=== PATIENT | male | born 1985 | race Two or more races ===

== ENCOUNTER → 2016-03-23 | Outpatient (REF) | payer OTHER ==
[2016-03-23 13:54] LABS: ALKALINE PHOSPHATASE 82 U/L (45-117); ALT/SGPT 46 U/L (12-78); ANION GAP 7 MEQ/L (8-16); AST/SGOT 21 U/L (15-37); BILIRUBIN,TOTAL 0.5 MG/DL (0.2-1.0); BLOOD UREA NITROGEN 13 MG/DL (7-18); CALCIUM LEVEL 9.3 MG/DL (8.5-10.1); CARBON DIOXIDE LEVEL 28 MEQ/L (21-32); CHLORIDE LEVEL 104 MEQ/L (98-107); CREATININE FOR GFR 1.13 MG/DL (0.70-1.30); GLOMERULAR FILTRATION RATE > 60.0 (>60); GLUCOSE, FASTING 83 MG/DL (70-105); POTASSIUM SERUM 4.2 MEQ/L (3.5-5.1); SODIUM LEVEL 139 MEQ/L (136-145)
[2016-03-23 16:16] LABS: ERYTHROCYTE SEDIMENTATION RATE 1 mm/hr (0-15)
[2016-03-23 18:21] LABS: ADD MORPHOLOGY? YES; BASO # 0.1 K/mm3 (0.0-0.2); BASO % 1.5 % (0.0-1.0); EOS # 0.3 K/mm3 (0.0-0.50); LARGE UNSTAINED CELL # 0.2 K/mm3 (0.0-0.4); LYMPH # 3.2 K/mm3 (1.5-4.5); LYMPH % 36.5 % (24.0-44.0); MEAN CORPUSCULAR HEMOGLOBIN 20.7 pg (27.0-33.0); MEAN CORPUSCULAR HGB CONC 31.8 g/dl (32.0-36.5); MEAN CORPUSCULAR VOLUME 65.1 fl (80.0-96.0); MONO # 0.5 K/mm3 (0.0-0.8); MONO % 5.7 % (0.0-5.0); NEUTROPHILS # 4.2 K/mm3 (1.8-7.7); NEUTROPHILS % 50.3 % (36.0-66.0); PLATELET COUNT, AUTOMATED 271 k/mm3 (150-450); RED CELL DISTRIBUTION WIDTH 15.7 % (11.5-14.5); WHITE BLOOD COUNT 8.4 K/mm3 (4.0-10.0)
[2016-03-23 21:35] LABS: MICROCYTOSIS 3+; OVALOCYTES 1+; POIKILOCYTOSIS 1+; SPHEROCYTES 1+
[2016-03-23 21:36] LABS: ANISOCYTOSIS 1+
== END ==
LOC: M LABNEURO 12:58
PROVIDERS: ATTEND Psychiatry & Neurology Neurology
DX: R51 Headache (principal)

== ENCOUNTER → 2016-04-10 | Outpatient (REF) ==
--- NOTE | 2016-04-10 13:22 | REP ---
Clinical: Chest pain . Comparison: None . Technique: PA and lateral. Findings: The mediastinum and cardiac silhouette are normal. The lung menash are clear and without acute consolidation, effusion, or pneumothorax. The skeletal structures are intact and normal. Impression: 1. No acute cardiopulmonary process. Signed by Alejandro Celaya MD 04/10/2016 01:13 P
--- NOTE | 2016-04-10 13:44 | REP ---
LUMBAR SPINE, FIVE VIEWS: HISTORY: Degenerative disc disease. There is no acute fracture or subluxation. The L4-5 intervertebral disc is decreased in height consistent with disc degeneration. The facet joints are normal in appearance. IMPRESSION: Degenerative change as described above. Signed by Louis Stallings MD 04/10/2016 01:49 P
== END ==
LOC: M SMT 12:30
PROVIDERS: ATTEND Internal Medicine
DX: Z02.1 Encounter for pre-employment examination (principal)

== ENCOUNTER 2016-06-22 16:47 | Inpatient (IN) | payer OTHER ==
[~2016-06-22] VITALS: Ht 172.7 cm; Wt 76.0 kg
[2016-06-22] MEDS ORDERED: PRAZ2CAP PO (17:07)
[2016-06-22] MEDS ORDERED: LEXA1TAB2 PO (17:07)
[2016-06-22 19:16] LABS: MEAN CORPUSCULAR HEMOGLOBIN 21.6 pg (27.0-33.0); MEAN CORPUSCULAR HGB CONC 31.9 g/dl (32.0-36.5); MEAN CORPUSCULAR VOLUME 67.7 fl (80.0-96.0); RED CELL DISTRIBUTION WIDTH 14.6 % (11.5-14.5)
[2016-06-22] MEDS ORDERED: ACET650T2 PO (19:18)
[2016-06-22 19:37] LABS: METHADONE URINE NEGATIVE (NEGATIVE)
[2016-06-22 19:47] LABS: ALBUMIN 3.6 GM/DL (3.2-5.2); ALBUMIN/GLOBULIN RATIO 0.95 (1.00-1.93); ALKALINE PHOSPHATASE 94 U/L (45-117); ALT/SGPT 85 U/L (12-78); ANION GAP 8 MEQ/L (8-16); AST/SGOT 29 U/L (15-37); BILIRUBIN,DIRECT < 0.1 MG/DL (0.0-0.2); BILIRUBIN,TOTAL 0.3 MG/DL (0.2-1.0); BLOOD UREA NITROGEN 15 MG/DL (7-18); CALCIUM LEVEL 8.2 MG/DL (8.5-10.1); CARBON DIOXIDE LEVEL 27 MEQ/L (21-32); CHLORIDE LEVEL 104 MEQ/L (98-107); CREATININE FOR GFR 1.26 MG/DL (0.70-1.30); GLOMERULAR FILTRATION RATE > 60.0 (>60); GLUCOSE, FASTING 109 MG/DL (70-105); POTASSIUM SERUM 4.3 MEQ/L (3.5-5.1); SODIUM LEVEL 139 MEQ/L (136-145); TOTAL PROTEIN 7.4 GM/DL (6.4-8.2)
[2016-06-22] MEDS: PRAZOSIN 1 MG CAP PO SCH (21:00)
[2016-06-22 22:37] VITALS: BP 125/81
[2016-06-22] MEDS ORDERED: ACETAMINOPHEN TAB 650MG DOSE (2X325MG) PO PRN (23:30)
[2016-06-22] MEDS ORDERED: MAALOX 30 ML SUSP *UDC PO PRN (23:30)
[2016-06-22] MEDS ORDERED: MOM 30ML SUSPENSION UDC PO PRN (23:30)
[2016-06-23 06:03] VITALS: BP 133/65
[2016-06-23] MEDS ORDERED: ESCITALOPRAM OXALATE 10 MG TAB (LEXAPRO) PO SCH ×2 (09:00)
[2016-06-23] MEDS ORDERED: hydrOXYzine 25 MG TAB PO SCH (09:00)
[2016-06-23] MEDS ORDERED: SERTRALINE HCL 50 MG TAB PO SCH (09:00)
[2016-06-23] MEDS ORDERED: SERTRALINE HCL 25 MG TABLET PO SCH (09:40)
[2016-06-23] MEDS ORDERED: OLANZapine ORAL DISINTEGRATING TAB 5MG PO PRN (10:45)
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
[2016-06-23 18:00] VITALS: BP 118/67
[2016-06-23 19:20] LABS: TOTAL IRON BINDING CAPACITY 341 UG/DL (250-450)
[2016-06-23] MEDS: PRAZOSIN 1 MG CAP PO SCH (22:39)
[2016-06-24 06:10] VITALS: BP 117/69
[2016-06-24 07:57] LABS: FERRITIN 139 NG/ML (26-388)
[2016-06-24] MEDS ORDERED: SERTRALINE HCL 50 MG TAB PO SCH (09:00)
[2016-06-24] MEDS: ESCITALOPRAM OXALATE 10 MG TAB (LEXAPRO) PO SCH (16:22)
[2016-06-24 18:00] VITALS: BP 118/68
--- NOTE | 2016-06-24 18:37 | IPN ---
DATE: 06/24/2016 INTERVAL HISTORY: MEDICATION SIDE EFFECTS: The patient states that the Zoloft last night gave him excessive restlessness and mild akathisia. He describes that he wished to be replaced on the Lexapro. He has not tried the olanzapine. BEHAVIOR: The patient has been generally reclusive to his room and guarded, although friendly on approach by nursing report. GROUP ATTENDANCE: The patient has not been attending groups fairly frequently and reports that he is really tired. PSYCHIATRIC: This patient states his anxiety and depression have improved. He describes that he has not had any panic attacks while being here, although experiencing some intrusive thoughts. He states these are improving and that he feels as though he has better control over them. 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 Otherwise he describes he has no issues currently and has been able to sleep fairly well on the saezn. He states that his appetite has not changed and remains generally good. VITAL SIGNS: Temperature 96.8, pulse 104, respiratory rate 16, blood pressure 117/69. 98% on room air. CURRENT MEDICATIONS: - Sertraline 25 mg daily - prazosin 2 mg daily - olanzapine 5 mg every 4 hours as needed as needed (p.r.n.) anxiety and agitation. - Tylenol - milk of magnesia - Mylanta as needed ALLERGIES: TRAZODONE. MENTAL STATUS EXAM: The patient met with today in the room with the attending and the resident. He appears to be well-dressed and well-groomed. His eye contact is fair, although at times he diverts his gaze from the interviewers. His mood is "okay". His affect is mildly dysthymic with some slight constriction, although reactivity can be provoked. His thought processes coherent and linear. His thought content lacks any suicidal or homicidal ideation. He denies any auditory or visual hallucinations. He does not appear to be responding to internal stimuli. He appears to have intact associations with no loosening. He does not appear to demonstrate any psychomotor agitation or retardation. He appears alert and oriented to his surroundings. Able to relate information cogently. His insight and judgment would be described as fair. ASSESSMENT: The patient is a 30-year-old man who was recently admitted to the saenz with suicidal ideation and recent history of post-traumatic stress disorder (PTSD). Has presented to [facility] and has been acutely stabilized, although his symptoms are still problematic, he is willing to try the olanzapine tonight to see if this might be an effective as needed for when he is discharged. He has no acute safety issues that we could identify and thus we cannot refuse his request to be discharged. DIAGNOSES: PTSD, acute. PLAN: Medications: Will switch the patient to Lexapro 10 mg with script when he leaves as he wishes to do this. Olanzapine will continue and the patient will try a dose to see if it is useful for him for discharge. PSYCHOTHERAPY: Encouraged group attendance. SOCIAL: Discharge plan for tomorrow with chain of command meeting. MISCELLANEOUS: None. DISPOSITION: The patient will need to remain longer for acute disposition planning and further medication titration. Time spent: 35 minutes. My preceptor for this patient encounter was Dr. Estefany Xiong. The preceptor was physically present in the building during the encounter and was fully available. As needed, all aspects of the patient interview, examination, medical decision making process, and medical care plan development were reviewed and approved by the preceptor. The preceptor is aware and concurs with the plan as stated in the body of this note and will attest to such by his/her cosignature. CM
[2016-06-24 21:50] VITALS: BP 131/89
[2016-06-24] MEDS: PRAZOSIN 1 MG CAP PO SCH (21:50)
[2016-06-25 06:39] VITALS: BP 126/76
[2016-06-25 07:31] LABS: ALBUMIN 3.7 GM/DL (3.2-5.2); ALBUMIN/GLOBULIN RATIO 0.93 (1.00-1.93); ALKALINE PHOSPHATASE 78 U/L (45-117); ALT/SGPT 73 U/L (12-78); AST/SGOT 25 U/L (15-37); BILIRUBIN,DIRECT < 0.1 MG/DL (0.0-0.2); BILIRUBIN,TOTAL 0.6 MG/DL (0.2-1.0); TOTAL PROTEIN 7.7 GM/DL (6.4-8.2)
--- NOTE | 2016-06-25 07:58 | HPE ---
DATE OF ADMISSION: 06/22/2016 Please refer to psychiatric history and evaluation for further details on this admission. This examination and history is intended for medical issues which may need treatment, followup or consult on this 30-year-old male. PRIMARY CARE PROVIDER: Pola Melendez. ALLERGIES: TRAZODONE. 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 Smokes none. Recreational drug use none. PAST MEDICAL HISTORY: Depression. Posttraumatic stress disorder. PAST SURGICAL HISTORY: Removal of submandibular gland for a stone. HOME MEDICATIONS: - Lexapro 20 mg by mouth daily - prazosin 2 mg by mouth daily at bedtime - Tylenol 650 by mouth every 6 hours as needed FAMILY HISTORY: Noncontributory. LABORATORY STUDIES: White count 8.0, hemoglobin 15, hematocrit 46.9. MCV 67.7. MCH 21.6. MCHC 31.9. RDW 14.6. Platelets are 233. Electrolytes are normal. BUN 15, creatinine 1.26. Nonfasting glucose 109, calcium 8.2. ALT elevated at 85. Toxicology screen was negative. Ten systems review was done and was unremarkable. Patient had no complaints. OBJECTIVE: Physical exam: 30-year-old cooperative male in no acute distress. Height 68 inches, weight 76 kg, BMI 25.5, blood pressure 118/68, pulse 73, respirations 16. Temperature 98.4. The patient is alert and oriented times three. Pupils equal and reactive to light. Extraocular movements intact. Cornea and sclera clear. Conjunctiva normal. No facial asymmetry. Pharynx, tongue and gums pink and moist. Tongue is midline. Neck is supple, without lymphadenopathy. No thyromegaly. No goiter. Carotids 2+ without bruit. Chest clear to auscultation, without wheeze or retraction. Heart is regular. Abdomen benign. Bowel sounds positive. Genitourinary ()/Rectal: Not done. Extremities full range of motion. No cyanosis, clubbing or edema. Gait is stready. Peripheral pulses equal and palpable bilaterally. Skin is warm and dry. IMPRESSION/PLAN: Psychiatric plan per psychiatry. Low MCV. Will check for iron levels, vitamin B12 and folate. Elevated ALT, will get a liver panel. No other acute medical issues.
[2016-06-25] MEDS: ESCITALOPRAM OXALATE 10 MG TAB (LEXAPRO) PO SCH (09:55)
[2016-06-25 10:24] LABS: FOLATE 11.1 NG/ML; VITAMIN B12 LEVEL 422 PG/ML
[2016-06-25] MEDS ORDERED: OLAN5ZYD PO (12:29)
[2016-06-25] MEDS ORDERED: ESCI10TA2 PO (12:29)
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
== END 2016-06-25 15:00 | disposition home or self-care (01) | DRG 882 ==
LOC: M ED 17:37 → M ED INP 18:32 → M PSY 22:25
PROVIDERS: ADMIT Psychiatry & Neurology Child & Adolescent Psychiatry; ATTEND Psychiatry & Neurology Psychiatry
DX: F43.10 Post-traumatic stress disorder, unspecified (principal); Z79.899 Other long term (current) drug therapy

== ENCOUNTER → 2018-05-13 | Outpatient (CLI) | payer MEDICAID, SELFPAY ==
[~2018-05-13] MED LIST: ACET650T3 PO; ESCI10TA2 PO; LEXA1TAB2 PO; OLAN5ZYD PO; PRAZ2CAP PO
== END ==
LOC: M LAB 14:39
DX: R76.11 Nonspecific reaction to tuberculin skin test without active tuberculosis (principal)

== ENCOUNTER 2018-09-24 05:58 | Emergency (ER) | payer MEDICAID, OTHER ==
[~2018-09-24] VITALS: Ht 167.6 cm; Wt 79.6 kg
[2018-09-24] MEDS ORDERED: PRED10PA PO ×2 (07:09→07:45)
[2018-09-24] MEDS ORDERED: FLUTISP ×2 (07:09→07:45)
[2018-09-24] MEDS ORDERED: AUGM875T28 PO ×2 (07:09→07:45)
[2018-09-24] MEDS ORDERED: predniSONE 50 MG TAB PO ONE (07:15)
[2018-09-24] MEDS ORDERED: AUGMENTIN 875 MG TAB PO ONE (07:15)
[2018-09-24 07:45] VITALS: BP 151/91
[2018-09-24] MEDS ORDERED: predniSONE 10 MG TAB PO ONE ×2 (07:45)
== END 2018-09-24 07:41 | disposition home or self-care (01) ==
LOC: M ED 05:58
DX: J03.90 Acute tonsillitis, unspecified (principal); J01.00 Acute maxillary sinusitis, unspecified; Z79.899 Other long term (current) drug therapy; Z88.8 Allergy status to other drugs, medicaments and biological substances

== ENCOUNTER 2018-12-09 07:11 | Emergency (ER) | payer OTHER ==
[~2018-12-09] VITALS: Ht 167.6 cm; Wt 76.0 kg
[2018-12-09 07:11] VITALS: BP 128/83
[~2018-12-09 07:11] MED LIST changes: +AUGM875T28 PO; +FLUTISP; +PRED10PA PO
[2018-12-09] MEDS ORDERED: LORA0.5T11 PO (07:23)
[2018-12-09] MEDS ORDERED: CLOTCRE3 TOP (07:58)
--- NOTE | 2018-12-09 08:12 | REP ---
Left knee series: Five views. History: Knee pain. Findings: Five views of the left knee show normal bones, joints, and soft tissues. No fracture or subluxation is seen. Impression: Negative radiographs of the left knee. Electronically Signed by Gabe Ayala MD 12/09/2018 08:05 A
== END 2018-12-09 08:22 | disposition home or self-care (01) ==
LOC: M ED 07:11
DX: M25.562 Pain in left knee (principal); F43.10 Post-traumatic stress disorder, unspecified; Z79.899 Other long term (current) drug therapy; Z88.8 Allergy status to other drugs, medicaments and biological substances

== ENCOUNTER 2019-02-24 13:56 | Emergency (ER) | payer OTHER ==
[~2019-02-24] VITALS: Ht 167.6 cm; Wt 78.9 kg
[~2019-02-24 13:56] MED LIST changes: +CLOTCRE3 TOP; +LORA0.5T11 PO
[2019-02-24 13:57] VITALS: BP 128/82
[2019-02-24] MEDS ORDERED: FLUO10CA15 (14:06)
== END 2019-02-24 18:30 | disposition left against medical advice (07) ==
LOC: M ED 13:56
DX: Z53.21 Procedure and treatment not carried out due to patient leaving prior to being seen by health care provider (principal)

== ENCOUNTER → 2019-04-13 | Outpatient (REF) | payer OTHER ==
[~2019-04-13] MED LIST changes: +FLUO10CA15; -LORA0.5T11 PO; +LORA0.5T5 PO
[2019-04-13 18:18] LABS: CHOLESTEROL LEVEL 238 MG/DL (<200); CHOLESTEROL RISK RATIO 7.212 (<5); HDL CHOLESTEROL 33 MG/DL (>40); LDL CHOLESTEROL 129 MG/DL (<100); NON-HDL-C 205 MG/DL; TRIGLYCERIDES LEVEL 379 MG/DL (<150)
[2019-04-14 12:01] LABS: HIV 1&2 SCREEN CENTAUR NEGATIVE (NEGATIVE)
[2019-04-18 00:07] LABS: TESTOSTERONE FREE (DIRECT) 38.8 pg/mL (8.7-25.1); VITAMIN D 1,25 DIHYDROXY 49.6 pg/mL (19.9-79.3)
== END ==
LOC: M SFHCPLAZ 14:08
DX: Z00.00 Encounter for general adult medical examination without abnormal findings (principal); E29.1 Testicular hypofunction

== ENCOUNTER 2020-05-13 14:51 | Inpatient (IN) | payer OTHER ==
[~2020-05-13] VITALS: Ht 162.6 cm; Wt 70.5 kg
[~2020-05-13 14:51] MED LIST changes: +ESCI10TA16 PO; -ESCI10TA2 PO; -FLUO10CA15; +FLUO10CA16
[2020-05-13] MEDS ORDERED: PRAZ1CAP PO (18:40)
[2020-05-13] MEDS ORDERED: LORA1TAB4 PO (18:40)
[2020-05-13] MEDS ORDERED: CYCL5TAB PO (18:40)
[2020-05-13] MEDS ORDERED: LEXA1TAB2 PO (18:40)
[2020-05-13] MEDS ORDERED: OMEP-221 PO (18:40)
[2020-05-13] MEDS ORDERED: SUDO30TA2 PO (18:40)
[2020-05-13] MEDS ORDERED: GENT1SOL17 OU (18:40)
[2020-05-13] MEDS ORDERED: TRAZ-252 PO (18:40)
[2020-05-13] MEDS ORDERED: IBUP-1022 PO (18:40)
[2020-05-13] MEDS ORDERED: RISP-11 PO (18:40)
[2020-05-13] MEDS ORDERED: AMOX875T2 PO (18:40)
[2020-05-13 18:45] LABS: HEMATOCRIT 48.2 % (42.0-52.0); HEMOGLOBIN 15.2 g/dl (13.5-17.5); MEAN CORPUSCULAR HEMOGLOBIN 21.2 pg (27.0-33.0); MEAN CORPUSCULAR HGB CONC 31.5 g/dl (32.0-36.5); MEAN CORPUSCULAR VOLUME 67.3 fl (80.0-96.0); PLATELET COUNT, AUTOMATED 334 10^3/uL (150-450); RED BLOOD COUNT 7.16 10^6/uL (4.30-6.10); WHITE BLOOD COUNT 12.2 10^3/uL (4.0-10.0)
[2020-05-13] MEDS ORDERED: LIDO5OIN19 TOP (19:10)
[2020-05-13 19:12] LABS: AMPHETAMINES LEVEL URINE NEGATIVE (NEGATIVE); BARBITURATES URINE NEGATIVE (NEGATIVE); BENZODIAZEPINES URINE NEGATIVE (NEGATIVE); CANNABINOIDS URINE NEGATIVE (NEGATIVE); COCAINE METABOLITE URINE NEGATIVE (NEGATIVE); METHADONE URINE NEGATIVE (NEGATIVE); OPIATES URINE NEGATIVE (NEGATIVE); PHENCYCLIDINE URINE NEGATIVE (NEGATIVE)
[2020-05-13 19:38] LABS: RSV AMPLIFICATION NEGATIVE (NEGATIVE)
[2020-05-13 20:29] LABS: ACETAMINOPHEN LEVEL < 2.0 UG/ML (10.0-30.0); ALBUMIN 3.8 GM/DL (3.2-5.2); ALT/SGPT 52 U/L (12-78); BILIRUBIN,DIRECT < 0.1 MG/DL (0.0-0.2); BILIRUBIN,TOTAL 0.3 MG/DL (0.2-1.0); BLOOD UREA NITROGEN 13 MG/DL (7-18); CARBON DIOXIDE LEVEL 28 MEQ/L (21-32); CHLORIDE LEVEL 102 MEQ/L (98-107); CREATININE FOR GFR 1.07 MG/DL (0.70-1.30); ETHYL ALCOHOL (ETHANOL) < 0.003 % (0.000-0.010); GLOMERULAR FILTRATION RATE > 60.0 (>60); GLUCOSE, FASTING 126 MG/DL (70-100); POTASSIUM SERUM 4.3 MEQ/L (3.5-5.1); SALICYLATE LEVEL < 1.7 MG/DL (5.0-30.0); SODIUM LEVEL 137 MEQ/L (136-145)
[2020-05-13] MEDS ORDERED: risperiDONE 2 MG TAB PO ONE (21:00)
[2020-05-13] MEDS ORDERED: LORazepam 1 MG TAB PO ONE (21:00)
[2020-05-13] MEDS ORDERED: OMEPRAZOLE 20 MG CAP PO ONE (21:00)
[2020-05-13] MEDS ORDERED: PRAZOSIN 1 MG CAP PO ONE (21:00)
[2020-05-13] MEDS ORDERED: ACETAMINOPHEN TAB 650MG DOSE (2X325MG) PO PRN (21:35)
[2020-05-13] MEDS ORDERED: traZODone 50 MG TAB PO PRN (21:35)
[2020-05-13] MEDS ORDERED: MOM 30ML SUSPENSION UDC PO PRN (21:35)
[2020-05-13] MEDS ORDERED: OLANZapine ORAL DISINTEGRATING TAB 5MG PO PRN (21:35)
[2020-05-13] MEDS ORDERED: MAALOX 30 ML SUSP *UDC PO PRN (21:35)
[2020-05-13 22:29] VITALS: BP 163/92
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
[2020-05-14] MEDS ORDERED: PSEUDOEPHEDRINE 30 MG TAB PO PRN (15:55)
[2020-05-14] MEDS ORDERED: traZODone 50 MG TAB PO PRN (15:55)
[2020-05-14 16:55] VITALS: BP 137/71
[2020-05-14 17:03] LABS: APPEARANCE, URINE CLEAR (CLEAR); BACTERIA, URINE AUTO NEGATIVE (NEGATIVE); BILIRUBIN, URINE AUTO NEGATIVE (NEGATIVE); BLOOD, URINE BLOOD NEGATIVE (NEGATIVE); COLOR, URINE STRAW (YELLOW); GLUCOSE, URINE (UA) AUTO NEGATIVE (NEGATIVE); KETONE, URINE AUTO NEGATIVE (NEGATIVE); LEUKOCYTE ESTERASE, URINE AUTO NEGATIVE (NEGATIVE); NITRITE, URINE AUTO NEGATIVE (NEGATIVE); PROTEIN, URINE AUTO NEGATIVE (NEGATIVE); RBC, URINE AUTO 0 /HPF (0-3); SPECIFIC GRAVITY URINE AUTO 1.005 (1.002-1.035); SQUAMOUS EPITHELIAL CELL UR AU 0 /HPF (0-6); UROBILINOGEN, URINE AUTO 0.2 mg/dL (0.0-2.0); WBC, URINE AUTO 1 /HPF (0-3)
[2020-05-14 20:19] VITALS: BP 126/75
[2020-05-14] MEDS ORDERED: LORazepam 1 MG TAB PO SCH (21:00)
[2020-05-14] MEDS ORDERED: PRAZOSIN 1 MG CAP PO SCH (21:00)
[2020-05-14] MEDS ORDERED: risperiDONE 2 MG TAB PO SCH ×2 (21:00)
[2020-05-15 06:53] VITALS: BP 120/75
[2020-05-15] MEDS ORDERED: OMEPRAZOLE 20 MG CAP PO SCH (09:00)
[2020-05-15] MEDS ORDERED: ESCITALOPRAM OXALATE 10 MG TAB (LEXAPRO) PO SCH (09:00)
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
== END 2020-05-15 13:48 | disposition home or self-care (01) | DRG 882 ==
LOC: M ED 14:51 → M ED INP 22:11 → M PSY 22:27
PROVIDERS: ADMIT Psychiatry & Neurology Child & Adolescent Psychiatry; ATTEND Psychiatry & Neurology Child & Adolescent Psychiatry
DX: F43.25 Adjustment disorder with mixed disturbance of emotions and conduct (principal); F43.10 Post-traumatic stress disorder, unspecified; Z79.899 Other long term (current) drug therapy; Z88.8 Allergy status to other drugs, medicaments and biological substances

== ENCOUNTER → 2022-03-09 | Outpatient (CLI) | payer OTHER, MEDICAID ==
[~2022-03-09] MED LIST changes: +AMOX875T2 PO; +CYCL5TAB PO; -FLUO10CA16; +FLUO10CA18; +GENT1SOL17 OU; +IBUP-1022 PO; +LIDO5OIN19 TOP; +LORA1TAB4 PO; +OMEP40CA5 PO; +PRAZ1CAP PO; +RISP-11 PO; +SUDO30TA2 PO; +TRAZ-252 PO
== END ==
LOC: M LABSMTC 10:31
PROVIDERS: ATTEND Anesthesiology
DX: Z01.818 Encounter for other preprocedural examination (principal)

== ENCOUNTER 2022-03-11 10:49 | Day surgery (SDC) | payer MEDICAID, OTHER ==
[~2022-03-11] VITALS: Ht 167.6 cm; Wt 84.3 kg
[~2022-03-11 10:49] MED LIST changes: +NS 1,000 ML IV ONE
[2022-03-11] MEDS ORDERED: MIDAZOLAM INJ 2MG/2ML VIAL As Ordered ONE (11:40)
[2022-03-11] MEDS ORDERED: propofoL 200 MG/20 ML VIAL As Ordered ONE (11:40)
[2022-03-11] MEDS ORDERED: LIDOCAINE 2% 100MG/5ML SDV (FOR ANES.) As Ordered ONE (11:40)
[2022-03-11 12:30] VITALS: BP 145/86
== END 2022-03-11 12:40 | disposition home or self-care (01) ==
LOC: M OPP 10:49
PROVIDERS: ATTEND Internal Medicine Gastroenterology
DX: K22.89 Other specified disease of esophagus (principal); K44.9 Diaphragmatic hernia without obstruction or gangrene; Z79.1 Long term (current) use of non-steroidal anti-inflammatories (NSAID); Z79.890 Hormone replacement therapy; Z79.899 Other long term (current) drug therapy; Z88.8 Allergy status to other drugs, medicaments and biological substances; M17.0 Bilateral primary osteoarthritis of knee; G43.909 Migraine, unspecified, not intractable, without status migrainosus; F32.9 Major depressive disorder, single episode, unspecified; F41.9 Anxiety disorder, unspecified
CPT/HCPCS: 43239; 88305; J2250

== ENCOUNTER → 2022-04-10 | Outpatient (CLI) | payer OTHER, MEDICAID ==
[~2022-04-10] MED LIST changes: -NS 1,000 ML IV ONE
[2022-04-10 14:07] LABS: ALBUMIN 4.1 G/DL (3.2-5.2); ALKALINE PHOSPHATASE 77 U/L (46-116); ALT/SGPT 26 U/L (7.0-40); AST/SGOT 15 U/L (<34); BILIRUBIN,TOTAL 0.5 MG/DL (0.3-1.2); BLOOD UREA NITROGEN 15 MG/DL (9-23); CALCIUM LEVEL 9.8 MG/DL (8.5-10.1); CARBON DIOXIDE LEVEL 30 MMOL/L (20-31); CHLORIDE LEVEL 101 MMOL/L (98-107); CHOLESTEROL LEVEL 198 MG/DL (<200); CHOLESTEROL RISK RATIO 5.89 (<5); CREATININE FOR GFR 1.05 MG/DL (0.70-1.30); GLOMERULAR FILTRATION RATE > 60.0 (>60); GLUCOSE, FASTING 104 MG/DL (60-100); HDL CHOLESTEROL 33.6 MG/DL (>40); LDL CHOLESTEROL 90.8 MG/DL (<100); NON-HDL-C 164 MG/DL; POTASSIUM SERUM 4.7 MMOL/L (3.5-5.1); SODIUM LEVEL 137 MMOL/L (136-145); TOTAL PROTEIN 8.1 G/DL (5.7-8.2); TRIGLYCERIDES LEVEL 368 MG/DL (<150)
[2022-04-10 14:30] LABS: HEMOGLOBIN A1c 5.9 % (4.0-6.0)
== END ==
LOC: M PLALAB 09:46
PROVIDERS: ATTEND Student in an Organized Health Care Education/Training Program
DX: R73.03 Prediabetes (principal); E78.00 Pure hypercholesterolemia, unspecified; E29.1 Testicular hypofunction; Z00.00 Encounter for general adult medical examination without abnormal findings

== ENCOUNTER 2023-01-28 10:07 | Emergency (ER) | payer OTHER ==
[~2023-01-28] VITALS: Ht 167.6 cm; Wt 83.8 kg
[~2023-01-28 10:07] MED LIST changes: +LORA1TAB23 PO; -LORA1TAB4 PO
[2023-01-28] MEDS ORDERED: methylPREDNISolone 125MG 2ML VIAL IV ONE (11:20)
[2023-01-28 12:16] LABS: BASO # 0.1 10^3/uL (0.0-0.2); BASO % 0.6 % (0.0-1.0); EOS # 0.4 10^3/uL (0.0-0.5); EOS % 4.3 % (0.0-3.0); HEMATOCRIT 50.1 % (42.0-52.0); HEMOGLOBIN 15.7 g/dl (13.5-17.5); LYMPH # 3.1 10^3/uL (1.5-5.0); LYMPH % 34.8 % (24.0-44.0); MEAN CORPUSCULAR HEMOGLOBIN 20.4 pg (27.0-33.0); MEAN CORPUSCULAR HGB CONC 31.3 g/dl (32.0-36.5); MEAN CORPUSCULAR VOLUME 65.2 fl (80.0-96.0); MONO # 0.7 10^3/uL (0.0-0.8); MONO % 7.3 % (2.0-8.0); NEUTROPHILS # 4.7 10^3/uL (1.5-8.5); NEUTROPHILS % 52.7 % (36.0-66.0); PLATELET COUNT, AUTOMATED 438 10^3/uL (150-450); RED BLOOD COUNT 7.68 10^6/uL (4.30-6.10); WHITE BLOOD COUNT 8.9 10^3/uL (4.0-10.0)
[2023-01-28 12:28] LABS: ERYTHROCYTE SEDIMENTATION RATE 43 mm/hr (0-15)
[2023-01-28 12:42] LABS: BLOOD UREA NITROGEN 16 MG/DL (9-23); CALCIUM LEVEL 9.8 MG/DL (8.5-10.1); CARBON DIOXIDE LEVEL 27 MMOL/L (20-31); CHLORIDE LEVEL 100 MMOL/L (98-107); GLOMERULAR FILTRATION RATE > 60.0 (>60); GLUCOSE, FASTING 99 MG/DL (60-100); POTASSIUM SERUM 4.7 MMOL/L (3.5-5.1); SODIUM LEVEL 137 MMOL/L (136-145)
[2023-01-28 14:38] VITALS: BP 124/78; TEMP 98.2; O2SAT 98
== END 2023-01-28 14:37 | disposition left against medical advice (07) ==
LOC: M ED 10:07
DX: M51.17 Intervertebral disc disorders with radiculopathy, lumbosacral region (principal); K62.89 Other specified diseases of anus and rectum; R20.2 Paresthesia of skin; K21.9 Gastro-esophageal reflux disease without esophagitis; F41.9 Anxiety disorder, unspecified; F32.A Depression, unspecified; Z79.83 Long term (current) use of bisphosphonates; Z79.52 Long term (current) use of systemic steroids; Z79.899 Other long term (current) drug therapy; Z88.8 Allergy status to other drugs, medicaments and biological substances; Z53.9 Procedure and treatment not carried out, unspecified reason
CPT/HCPCS: 72148; 80048; 85025; 85652; 96374; 99284; J2930

== ENCOUNTER → 2023-02-24 | Outpatient (REF) | LOC: M PLAIMG 10:39 | PROVIDERS: ATTEND Internal Medicine | DX: R52 Pain, unspecified (principal) ==

== ENCOUNTER → 2023-02-24 | Outpatient (CLI) | payer OTHER ==
[2023-02-24 13:45] LABS: BASO % 0.4 % (0.0-1.0); EOS # 0.5 10^3/uL (0.0-0.5); EOS % 4.4 % (0.0-3.0); HEMOGLOBIN 14.9 g/dl (13.5-17.5); LYMPH # 2.6 10^3/uL (1.5-5.0); LYMPH % 24.5 % (24.0-44.0); MEAN CORPUSCULAR HEMOGLOBIN 20.3 pg (27.0-33.0); MEAN CORPUSCULAR VOLUME 65.3 fl (80.0-96.0); MONO # 0.4 10^3/uL (0.0-0.8); MONO % 3.4 % (2.0-8.0); NEUTROPHILS # 7.1 10^3/uL (1.5-8.5); NEUTROPHILS % 66.9 % (36.0-66.0); PLATELET COUNT, AUTOMATED 426 10^3/uL (150-450); RED BLOOD COUNT 7.35 10^6/uL (4.30-6.10); WHITE BLOOD COUNT 10.6 10^3/uL (4.0-10.0)
[2023-02-24 14:11] LABS: ALBUMIN 4.1 G/DL (3.2-5.2); ALKALINE PHOSPHATASE 83 U/L (46-116); ALT/SGPT 21 U/L (7.0-40); AST/SGOT 11 U/L (<34); BILIRUBIN,TOTAL 0.4 MG/DL (0.3-1.2); BLOOD UREA NITROGEN 14 MG/DL (9-23); CALCIUM LEVEL 9.6 MG/DL (8.5-10.1); CARBON DIOXIDE LEVEL 28 MMOL/L (20-31); CHLORIDE LEVEL 100 MMOL/L (98-107); CREATININE FOR GFR 0.88 MG/DL (0.70-1.30); GLOMERULAR FILTRATION RATE > 60.0 (>60); GLUCOSE, FASTING 149 MG/DL (60-100); POTASSIUM SERUM 4.5 MMOL/L (3.5-5.1); SODIUM LEVEL 135 MMOL/L (136-145); TOTAL PROTEIN 7.8 G/DL (5.7-8.2)
== END ==
LOC: M PLALAB 10:42
PROVIDERS: ATTEND Student in an Organized Health Care Education/Training Program
DX: Z01.818 Encounter for other preprocedural examination (principal)

== ENCOUNTER → 2023-03-16 | Outpatient (CLI) | payer OTHER | LOC: M RAD 09:04 | PROVIDERS: ATTEND Student in an Organized Health Care Education/Training Program | DX: N28.1 Cyst of kidney, acquired (principal); Z87.448 Personal history of other diseases of urinary system ==

== ENCOUNTER → 2023-04-05 | Outpatient (CLI) | payer OTHER ==
[~2023-04-05] MED LIST changes: +ISOVUE-370 76% 100ML VIAL As Ordered ONE
== END ==
LOC: M RAD 08:56
PROVIDERS: ATTEND Physician Assistant
DX: N28.1 Cyst of kidney, acquired (principal); K76.89 Other specified diseases of liver
CPT/HCPCS: 74170; Q9967

== ENCOUNTER → 2023-04-23 | Outpatient (REF) | payer OTHER, MEDICAID ==
[~2023-04-23] MED LIST changes: -ISOVUE-370 76% 100ML VIAL As Ordered ONE
== END ==
LOC: M SFHCPLAZ 13:14
PROVIDERS: ATTEND Student in an Organized Health Care Education/Training Program
DX: J02.9 Acute pharyngitis, unspecified (principal)

== ENCOUNTER → 2024-04-10 | Outpatient (CLI) | payer OTHER, MEDICAID ==
[~2024-04-10] MED LIST changes: -CYCL5TAB PO; +CYCL5TAB4 PO; +FLUO-290; -FLUO10CA18; -RISP-11 PO; +RISP4TAB95 PO
[2024-04-10 18:36] LABS: BASO % 0.4 % (0.0-1.0); EOS # 0.3 10^3/uL (0.0-0.5); EOS % 3.2 % (0.0-3.0); HEMATOCRIT 45.8 % (42.0-52.0); HEMOGLOBIN 14.3 g/dl (13.5-17.5); LYMPH # 3.7 10^3/uL (1.5-5.0); LYMPH % 39.5 % (24.0-44.0); MEAN CORPUSCULAR HEMOGLOBIN 20.7 pg (27.0-33.0); MEAN CORPUSCULAR HGB CONC 31.2 g/dl (32.0-36.5); MEAN CORPUSCULAR VOLUME 66.3 fl (80.0-96.0); MONO # 0.6 10^3/uL (0.0-0.8); MONO % 6.7 % (2.0-8.0); NEUTROPHILS # 4.7 10^3/uL (1.5-8.5); NEUTROPHILS % 49.9 % (36.0-66.0); PLATELET COUNT, AUTOMATED 383 10^3/uL (150-450); RED BLOOD COUNT 6.91 10^6/uL (4.30-6.10); WHITE BLOOD COUNT 9.4 10^3/uL (4.0-10.0)
[2024-04-10 18:56] LABS: HEMOGLOBIN A1c 6.3 % (4.0-6.0)
[2024-04-10 19:10] LABS: ALBUMIN 3.9 G/DL (3.2-5.2); ALKALINE PHOSPHATASE 84 U/L (40-129); ALT/SGPT 29 U/L (7.0-40); AST/SGOT 17 U/L (<34); BILIRUBIN,TOTAL 0.3 MG/DL (0.3-1.2); BLOOD UREA NITROGEN 17 MG/DL (9-23); CALCIUM LEVEL 9.4 MG/DL (8.5-10.1); CARBON DIOXIDE LEVEL 27 MMOL/L (20-31); CHLORIDE LEVEL 103 MMOL/L (98-107); CHOLESTEROL LEVEL 182 MG/DL (<200); CHOLESTEROL RISK RATIO 5.32 (<5); CREATININE FOR GFR 1.03 MG/DL (0.70-1.30); GLOMERULAR FILTRATION RATE > 60.0 (>60); GLUCOSE, FASTING 94 MG/DL (60-100); HDL CHOLESTEROL 34.2 MG/DL (>40); LDL CHOLESTEROL 69.2 MG/DL (<100); NON-HDL-C 147.8 MG/DL; POTASSIUM SERUM 5.1 MMOL/L (3.5-5.1); SODIUM LEVEL 142 MMOL/L (136-145); TRIGLYCERIDES LEVEL 393 MG/DL (<150)
[2024-04-10 19:12] LABS: THYROID STIMULATING HORMONE 1.602 uIU/ML (0.55-4.78)
== END ==
LOC: M PLALAB 16:28
PROVIDERS: ATTEND Student in an Organized Health Care Education/Training Program
DX: Z00.00 Encounter for general adult medical examination without abnormal findings (principal); R73.03 Prediabetes

== ENCOUNTER → 2024-05-12 | Outpatient (CLI) | payer OTHER, MEDICAID | LOC: M RAD 11:04 | PROVIDERS: ATTEND Physician Assistant | DX: N28.1 Cyst of kidney, acquired (principal); R93.421 Abnormal radiologic findings on diagnostic imaging of right kidney; R93.422 Abnormal radiologic findings on diagnostic imaging of left kidney ==

== ENCOUNTER → 2024-05-24 | Outpatient (CLI) | payer OTHER, MEDICAID ==
[~2024-05-24] MED LIST changes: +ISOVUE-370 76% 100ML VIAL As Ordered ONE
== END ==
LOC: M RAD 15:31
PROVIDERS: ATTEND Physician Assistant
DX: R93.89 Abnormal findings on diagnostic imaging of other specified body structures (principal); N28.1 Cyst of kidney, acquired
CPT/HCPCS: 74178; Q9967

== ENCOUNTER → 2024-06-20 | Outpatient (CLI) | payer OTHER, MEDICAID ==
[~2024-06-20] MED LIST changes: -ISOVUE-370 76% 100ML VIAL As Ordered ONE
== END ==
LOC: M EKG 11:41
PROVIDERS: ATTEND Student in an Organized Health Care Education/Training Program
DX: R07.89 Other chest pain (principal)

== ENCOUNTER → 2024-12-27 | Outpatient (REF) | payer OTHER, MEDICAID ==
[~2024-12-27] MED LIST changes: -IBUP-1022 PO; +IBUP600T42 PO
== END ==
LOC: M SFHCPLAZ 09:03
PROVIDERS: ATTEND Family Medicine
DX: Z13.0 Encounter for screening for diseases of the blood and blood-forming organs and certain disorders involving the immune mechanism (principal); R71.8 Other abnormality of red blood cells; I10 Essential (primary) hypertension; Z11.1 Encounter for screening for respiratory tuberculosis; R73.03 Prediabetes

== ENCOUNTER → 2024-12-27 | Outpatient (CLI) | payer OTHER, MEDICAID ==
[2024-12-27 14:22] LABS: PLATELET COUNT, AUTOMATED 430 10^3/uL (150-450)
[2024-12-27 14:40] LABS: ESTIMATED AVERAGE GLUCOSE 128.0 MG/DL (60-110)
[2024-12-27 14:45] LABS: CALCIUM LEVEL 9.8 MG/DL (8.5-10.1); CARBON DIOXIDE LEVEL 28.0 MMOL/L (20-31); CHLORIDE LEVEL 102.0 MMOL/L (98-107); CREATININE FOR GFR 1.21 MG/DL (0.70-1.30); GLOMERULAR FILTRATION RATE 77.6 (>60); IRON (FE) 117.0 UG/DL (65-175); PERCENT SATURATION 31.3 % (19.7-50.0); POTASSIUM SERUM 4.6 MMOL/L (3.5-5.1); SODIUM LEVEL 141.0 MMOL/L (136-145)
== END ==
LOC: M LAB 13:24
DX: Z11.1 Encounter for screening for respiratory tuberculosis (principal); R73.03 Prediabetes; Z13.0 Encounter for screening for diseases of the blood and blood-forming organs and certain disorders involving the immune mechanism; I10 Essential (primary) hypertension; R71.8 Other abnormality of red blood cells